=== PATIENT | female | born 1990 | race Caucasian/White ===

== ENCOUNTER 2019-08-31 05:21 | Inpatient (IN) | payer SELFPAY ==
[2019-08-31] VITALS (86 sets, daily range): BP systolic 86–133; BP diastolic 42–91; PULSE 62–99; RESP 16–17; TEMP 36.6–37.2; O2SAT 98–100; BMI 27.6
--- NOTE | 2019-08-31 05:21 | LDADM ---
This patient, Gracia Lanza, was admitted to Labor/Delivery/Recovery 104 on 08/31/19 at 05:21. Plans for labor, pain management and were discussed with patient. Patient/family oriented to hospital policies and general routines including ID bracelet, bed and alarms, visiting hours, pain management, procedures, bathroom and other care routines, personal items, smoking policy, room service/diet and guest tray routines, infant security routines, and visiting hours. Patient/Family are encouraged to report perceived risks to care and to ask questions if they do not understand what they are told or what they should do. See OBIX for further documentation.
[2019-08-31 06:09] LABS: Basophils Percent Auto 0.2 % (0.2-1.2); Eosinophils Absolute Auto 0.1 K/mm3 (0-0.3); Eosinophils Percent Auto 0.9 % (0-4.4); Hematocrit 32.6 % (37.0-47.0); Hemoglobin 10.6 g/dL (12.0-15.0); Immature Granulocyte Absolute 0.05 K/mm3 (0.00-0.031); Immature Granulocyte Percent A 0.8 % (0-0.5); Lymphocytes Absolute Auto 1.79 K/mm3 (0.9-3.2); Lymphocytes Percent Auto 26.9 % (18.3-44.2); Mean Corpuscular HGB Conc 32.5 g/dl (32-36); Mean Corpuscular Hemoglobin 28.4 pg (26-34); Mean Corpuscular Volume 87.4 fl (80-100); Mean Platelet Volume 11.1 fl (7.4-10.4); Monocytes Absolute Auto 0.7 K/mm3 (0.1-0.6); Monocytes Percent Auto 9.9 % (2.6-8.5); Neutrophils Absolute Auto 4.1 K/mm3 (1.3-6.7); Neutrophils Percent Auto 61.3 % (45.5-73.1); Platelet Count Result 234 k/mm3 (150-375); Red Blood Count 3.73 M/mm3 (4.2-5.4); Red Cell Distribution Width 14.6 % (11.5-14.5); White Blood Count 6.7 K/mm3 (4.5-10.0)
[2019-08-31] MEDS: AMPICILLIN 2 GM/NS 100 ML 2 GM/100 ML BAG IVPB (06:21)
[2019-08-31] MEDS: LACTATED RINGERS 1,000 ML 125 ML IV CONT ×2 (06:21→08:22)
[2019-08-31 06:28] LABS: Alanine Aminotransferase 91 U/L (4-35); Albumin Level 3.4 g/dL (3.5-5.1); Alkaline Phosphatase 193 U/L (38-126); Aspartate Amino Transferase 63 U/L (14-36); Bilirubin,Total 0.3 mg/dL (0.2-1.3); Blood Urea Nitrogen 4 mg/dL (7-17); Calcium 8.8 mg/dL (8.4-10.2); Carbon Dioxide 18 mmol/L (22-30); Chloride 106 mmol/L (98-107); Estimated Glomerular Filt Rate > 60; Glucose 88 mg/dL (65-105); Potassium 3.6 mmol/L (3.4-5.0); Sodium 134 mmol/L (137-145)
--- NOTE | 2019-08-31 06:39 | PM.IMHP ---
H&P: HPI History of Present Illness Chief complaint: INDUCTION Narrative: Gracia Lanza is a 29 year old female 7 para 3033, whose last menstrual period was 2018 EDC is 09/07/2019 confirmed by 8 week ultrasound presents 39 weeks gestation for induction of labor. She has elevated blood pressures. Her has been complicated by an arrest and she has had positive marijuana UDS in the past. She also had an abnormal diabetic screen but she had for 4 normal on her 3hour GTT. She is positive for group B strep she did have gonorrhea and has been treated treated twice she received 1 dose of Rocephin IV this morning as an additional coverage Review of Systems Review of Systems: All systems reviewed & are unremarkable except as noted in HPI and below PMFSH Social History Social History Smoking status: Former smoker Meds Home Medications and Allergies Home Medications Medication Instructions Recorded Confirmed Type alprazolam 0.5 mg PO BID PRN 08/05/19 08/31/19 History venlafaxine 37.5 mg PO DAILY 08/05/19 08/31/19 History PNV cmb#95-ferrous fumarate-FA 1 tablet PO DAILY 08/31/19 08/31/19 History [] Allergies Allergy/AdvReac Type Severity Reaction Status Date / Time No Known Allergies Allergy Verified 12/25/18 11:01 Vital Signs Vital Signs - 24 hr 08/31/19 05:39 Pulse Rate 90 Blood Pressure 115/78 Exam Const: General: no acute distress Eyes: General: appearance normal, both eyes and all related structures Neck: Neck: supple and no JVD Thyroid: thyroid normal Resp: Effort & Inspection: normal respiratory effort Auscultation: clear to auscultation bilaterally Cardio: Rate: regular rate Rhythm: regular rhythm GI: Inspection: normal to inspection Auscultation: normal bowel sounds Other: Gravid soft uterus is noted : General: Yes other (Cervix is 3/75%/-1 station AROM is Mec stained. FHTS are reassuring) Skin: General skin exam: no rashes or lesions noted Extrem: General: normal to inspection and no edema Psych: Mental Status: mental status grossly normal Affect: normal affect H&P: Results Labs Labs: Short CBC 08/31/19 Range/Units 06:03 WBC 6.7 (4.5-10.0) K/mm3 Hgb 10.6 L (12.0-15.0) g/dL Hct 32.6 L (37.0-47.0) % Plt Count 234 (150-375) k/mm3 BMP 08/31/19 06:03 Sodium 134 L Potassium 3.6 Chloride 106 Carbon Dioxide 18 L BUN 4 L Creatinine 0.40 L Glucose 88 Calcium 8.8 Liver Function 08/31/19 Range/Units 06:03 Total Bilirubin 0.3 (0.2-1.3) mg/dL AST 63 H (14-36) U/L ALT 91 H (4-35) U/L Alkaline Phosphatase 193 H (38-126) U/L Albumin 3.4 L (3.5-5.1) g/dL Assessment and Plan Additional Plan Impression: Term . Positive group B strep. History of gonorrhea. History of substance abuse Plan: Medical induction of labor. Group B strep prophylaxis. 1 g IV Rocephin given. She is epidural candidate. PIH labs are drawn. UDS is performed
[2019-08-31] MEDS: SODIUM CHLORIDE 0.9% IV 1,000 ML 125 ML (07:16)
[2019-08-31 07:59] LABS: Rapid Plasma Reagin Non-Reactive (NonReactive)
[2019-08-31 08:24] LABS: Amphetamine Screen Urine Negative (Negative); Barbiturate Screen Urine Negative (Negative); Benzodiazepines Screen Urine Negative (Negative); Cannabinoid Screen Urine Negative (Negative); Cocaine Screen Urine Negative (Negative); Methadone Screen Urine Negative (Negative); Opiate Screen Urine Negative (Negative); Phencyclidine Screen Urine Negative (Negative)
--- NOTE | 2019-08-31 08:30 | WPDANESEPPF ---
Anes - Initial Pre Proc Eval Date/Time: 08/31/19 08:30 Surgeon: Miguel Ayoub MD Pre Op Diagnosis: INDUCTION Patient Data Age: 29 Gender: F Height: 1.68 m Weight: 77.5 kg Last Vital Signs Temp 37.2 C 08/31/19 08:26 Pulse 81 08/31/19 08:16 BP 107/67 08/31/19 08:16 Allergies Allergy/AdvReac Type Severity Reaction Status Date / Time No Known Allergies Allergy Verified 12/25/18 11:01 Home Medications Medication Instructions Recorded Confirmed Type alprazolam 0.5 mg PO BID PRN 08/05/19 08/31/19 History venlafaxine 37.5 mg PO DAILY 08/05/19 08/31/19 History PNV cmb#95-ferrous fumarate-FA 1 tablet PO DAILY 08/31/19 08/31/19 History [] Laboratory Tests 08/31/19 08/31/19 08/31/19 06:03 06:03 06:03 WBC 6.7 K/mm3 K/mm3 (4.5-10.0) RBC 3.73 M/mm3 L M/mm3 (4.2-5.4) Hgb 10.6 g/dL L g/dL (12.0-15.0) Hct 32.6 % L % (37.0-47.0) MCV 87.4 fl fl (80-100) MCH 28.4 pg pg (26-34) MCHC 32.5 g/dl g/dl (32-36) RDW 14.6 % H % (11.5-14.5) Plt Count 234 k/mm3 k/mm3 (150-375) MPV 11.1 fl H fl (7.4-10.4) Immature Gran % (Auto) 0.8 % H % (0-0.5) Neut % (Auto) 61.3 % % (45.5-73.1) Lymph % (Auto) 26.9 % % (18.3-44.2) Beckham % (Auto) 9.9 % H % (2.6-8.5) Eos % (Auto) 0.9 % % (0-4.4) Baso % (Auto) 0.2 % % (0.2-1.2) Lymph # (Auto) 1.79 K/mm3 K/mm3 (0.9-3.2) Beckham # (Auto) 0.7 K/mm3 H K/mm3 (0.1-0.6) Eos # (Auto) 0.1 K/mm3 K/mm3 (0-0.3) Baso # (Auto) 0.0 K/mm3 K/mm3 (0.0-0.1) Abs Immat Gran (auto) 0.05 K/mm3 H K/mm3 (0.00-0.031) Absolute Neuts (auto) 4.1 K/mm3 K/mm3 (1.3-6.7) Absolute Nucleated RBC 0.0 K/mm3 K/mm3 (0.0-0.012) Nucleated RBC % 0.0 % % (0.0-0.2) Sodium Potassium Chloride Carbon Dioxide BUN Creatinine Estim Creat Clear Calc Estimated GFR Glucose Calcium Total Bilirubin AST ALT Alkaline Phosphatase Total Protein Albumin Urine Opiates Screen Urine Methadone Screen Ur Barbiturates Screen Ur Phencyclidine Scrn Ur Amphetamine Screen U Benzodiazepines Scrn Urine Cocaine Screen U Cannabinoids Screen RPR Non-reactive (NonReactive) Blood Type O Positive Antibody Screen Negative 08/31/19 08/31/19 06:03 07:36 WBC RBC Hgb Hct MCV MCH MCHC RDW Plt Count MPV Immature Gran % (Auto) Neut % (Auto) Lymph % (Auto) Beckham % (Auto) Eos % (Auto) Baso % (Auto) Lymph # (Auto) Beckham # (Auto) Eos # (Auto) Baso # (Auto) Abs Immat Gran (auto) Absolute Neuts (auto) Absolute Nucleated RBC Nucleated RBC % Sodium 134 mmol/L L mmol/L (137-145) Potassium 3.6 mmol/L mmol/L (3.4-5.0) Chloride 106 mmol/L mmol/L (98-107) Carbon Dioxide 18 mmol/L L mmol/L (22-30) BUN 4 mg/dL L mg/dL (7-17) Creatinine 0.40 mg/dL L mg/dL (0.7-1.0) Estim Creat Clear Calc Not Reportable Estimated GFR > 60 (59 - ) Glucose 88 mg/dL mg/dL (65-105) Calcium 8.8 mg/dL mg/dL (8.4-10.2) Total Bilirubin 0.3 mg/dL mg/dL (0.2-1.3) AST 63 U/L H U/L (14-36) ALT 91 U/L H U/L (4-35) Alkaline Phosphatase 193 U/L H U/L (38-126) Total Protein 7.0 g/dL g/dL (6.3-8.2) Albumin 3.4 g/dL L g/dL (3.5-5.1)
[2019-08-31] MEDS: ALPRAZOLAM 0.25 MG TABLET PO (08:31)
[2019-08-31 08:43] LABS: Uric Acid 5.6 mg/dL (2.5-7.5)
[2019-08-31 09:21] LABS: Alanine Aminotransferase 93 U/L (4-35); Albumin Level 3.3 g/dL (3.5-5.1); Alkaline Phosphatase 195 U/L (38-126); Aspartate Amino Transferase 63 U/L (14-36); Bilirubin,Total 0.3 mg/dL (0.2-1.3)
[2019-08-31] MEDS: AMPICILLIN 1 GM/NS 50 ML 1 GM/50 ML BAG IVPB (10:15)
--- NOTE | 2019-08-31 10:44 | PC.NURSE ---
0700-Spoke with pt and her mother about her previous drug use and that we have received several anonymous phone calls stating that she is using drugs and we have received information stating she will be arrested after she has the baby for the of one of her other children. Pt and her mother both state that she has custody of both of her other children, denies any DCFS cases, and states that she was arrested but is out on her own recognizance. I informed pt that I will be putting a social service consult in on her due to phone calls and previous drug use, pt states she doesn't understand why I have to do that since since she has custody of her children and has never had a DCFS case open on her.
--- NOTE | 2019-08-31 10:50 | PC.NURSE ---
0912Mateusz from care coordination called, informed of anonymous phone calls yesterday stating pt is using hard core drugs and asking if we will do a drug screen on baby and mom. Informed that pt was arrested during this in relation to the of one of her other children but pt denies any DCFS cases.
[2019-08-31 11:05] LABS: Amphetamine Screen Urine Negative (Negative); Barbiturate Screen Urine Negative (Negative); Benzodiazepines Screen Urine Negative (Negative); Cannabinoid Screen Urine Negative (Negative); Cocaine Screen Urine Negative (Negative); Methadone Screen Urine Negative (Negative); Opiate Screen Urine Negative (Negative); Phencyclidine Screen Urine Negative (Negative)
--- NOTE | 2019-08-31 11:27 | PM.OBPRVD ---
OB - Delivery Note Procedure Delivery date: 08/31/19 events: Induced HTN Intrapartal events: None Induction method: AROM Delivery augmentation: pitocin Delivery monitor: external FHT Route of delivery: Episiotomy description: None Laceration description: None Specimen: No Estimated blood loss (mL): 57 Anesthesia type: Epidural Disposition: floor Baby Date of : 08/31/19 Time of : 11:19 Weeks of gestation at delivery: 39 presentation: vertex position: Right Occiput Anterior Placenta delivery description: Spontaneous cord vessel description: 3 Vessels score one minute: 8 score five minutes: 9
--- NOTE | 2019-08-31 14:18 | OBPPTRN ---
Addendum entered by Radha Weston RN 08/31/19 14:45: Transferred to room 283 per wheelchair. Pt's mother is the support person. Original Note: Patient transferred to post room # via ( ). Support person present. Oriented to unit, room, information board, rooming in, admission packet and security measures. Patient verbalizes understanding.
[2019-08-31] MEDS: IBUPROFEN 600 MG TABLET PO (14:35)
[2019-09-01 05:52] LABS: Hemoglobin 9.7 g/dL (12.0-15.0)
--- NOTE | 2019-09-01 07:01 | PM.OBPNVD ---
OB - PN: Subj Subjective Date/time seen: 09/01/19 07:01 Patient comments: no complaints and pain well controlled baby status: doing well and nursing well OB - PN: Obj Data Labs CBC & Chem 7: 09/01/19 04:42 08/31/19 06:03 Labs: Laboratory Results - last 24 hr 08/31/19 08/31/19 08/31/19 06:03 06:03 06:03 Hgb Hct Uric Acid 5.6 Total Bilirubin Direct Bilirubin AST ALT Alkaline Phosphatase Total Protein Albumin Urine Opiates Screen Urine Methadone Screen Ur Barbiturates Screen Ur Phencyclidine Scrn Ur Amphetamine Screen U Benzodiazepines Scrn Urine Cocaine Screen U Cannabinoids Screen RPR Non-reactive Blood Type O Positive Antibody Screen Negative 08/31/19 08/31/19 08/31/19 06:03 07:36 10:21 Hgb Hct Uric Acid Total Bilirubin 0.3 Direct Bilirubin 0.0 AST 63 H ALT 93 H Alkaline Phosphatase 195 H Total Protein 6.0 L Albumin 3.3 L Urine Opiates Screen Negative Negative Urine Methadone Screen Negative Negative Ur Barbiturates Screen Negative Negative Ur Phencyclidine Scrn Negative Negative Ur Amphetamine Screen Negative Negative U Benzodiazepines Scrn Negative Negative Urine Cocaine Screen Negative Negative U Cannabinoids Screen Negative Negative RPR Blood Type Antibody Screen 09/01/19 04:42 Hgb 9.7 L Hct 30.0 L Uric Acid Total Bilirubin Direct Bilirubin AST ALT Alkaline Phosphatase Total Protein Albumin Urine Opiates Screen Urine Methadone Screen Ur Barbiturates Screen Ur Phencyclidine Scrn Ur Amphetamine Screen U Benzodiazepines Scrn Urine Cocaine Screen U Cannabinoids Screen RPR Blood Type Antibody Screen OB - PN A/P Plan day: 1 Plan: routine care Time Spent With Patient Time: Total time spent is greater than 50% in coordination of care (as documented) at patient's floor/unit and/or counseling patient: Time with patient: less than 15 minutes Review of Systems Review of Systems: All systems reviewed & are unremarkable except as noted in HPI and below Exam Const: General: no acute distress Eyes: General: appearance normal, both eyes and all related structures Neck: Neck: supple and no JVD Thyroid: thyroid normal Resp: Effort & Inspection: normal respiratory effort Auscultation: clear to auscultation bilaterally Cardio: Rate: regular rate Rhythm: regular rhythm GI: Inspection: non-distended GI Palp: Yes Soft to palpation, No Tenderness to palpation present (GI) and No Guarding due to palpation present (GI) Auscultation: normal bowel sounds : General: Yes bladder normal to palpation External Female Exam: normal external appearance Speculum Exam - Vagina: normal vaginal discharge and No vaginal bleeding Speculum Exam - Cervix: nontender Bimanual exam- vagina & uterus: bladder normal to palpation and No Cervical tenderness present OB/external & speculum: No vaginal bleeding Skin: General skin exam: no rashes or lesions noted Extrem: General: normal to inspection and no edema Psych: Mental Status: mental status grossly normal Affect: normal affect
[2019-09-01] MEDS: MULTIVIT/MIN/PREN/FOL AC/IRON TABLET 1 TAB PO (07:34)
[2019-09-01] MEDS: POLYSACCHARIDE IRON COMPLEX 150 MG CAPSULE PO ×2 (07:34→22:00)
[2019-09-01] MEDS: IBUPROFEN 600 MG TABLET PO (07:35)
[2019-09-01] MEDS: DOCUSATE SODIUM 100 MG CAPSULE PO ×2 (07:35→22:00)
[2019-09-01] MEDS: ALPRAZOLAM 0.5 MG TABLET PO (08:03)
[2019-09-01] MEDS: LANOLIN (LANSINOH) 7.5 GM CREAM 1 APPLIC TOPICAL (08:07)
[2019-09-01 08:25] VITALS: BP 95/58; PULSE 73; RESP 16; TEMP 36.3; O2SAT 96
--- NOTE | 2019-09-01 08:50 | PC.NURSE ---
Spoke with Pamela from [facility] [employer] regarding Pamela's contact with DCFS regarding pt's past case and to report this current /delivery information. Discussed with Pamela that has not displayed any withdrawal symptoms and is feeding well. Mom is actively involved in infant's care and appears to demonstrate positive bonding behaviors.
--- NOTE | 2019-09-01 09:27 | WPDANLDPN2 ---
Anes-Prog Note L&D Date/Time: 09/01/19 09:27 Comfortable throughout: labor and delivery Neuraxial method: epidural Epidural/Spinal procedure site: clean & non-tender Neuro status: Neuro function grossly intact. Cardiovascular status: normal Respiratory status: normal Airway patency: baseline Mental status: baseline Post-Op hydration status: normal Vital Signs: Last Vital Signs Temp 36.8 C 08/31/19 21:38 Pulse 65 08/31/19 21:38 Resp 17 08/31/19 21:38 BP 108/70 08/31/19 21:38 Pulse Ox 98 08/31/19 14:20 Post-procedural complaints: none Patient feedback: Patient satisfied with anesthetic care.
--- NOTE | 2019-09-01 09:50 | PC.NURSE ---
Consult with pt., mother reports she is able to independently latch infant with appropriate positioning/alignment. She denies any nipple discomfort, is feeding as required and waking to feed if needed. Mother states this is 3rd child to breastfeed. Requested mother call out next feeding for observation.
--- NOTE | 2019-09-01 15:35 | PC.NURSE ---
Pamela from [facility] [employer] called to update RN that she has not heard anything back from DCFS today.
--- NOTE | 2019-09-01 15:43 | PCCCNOTE ---
SW Note. Received referral regarding pt. history of DCFS involvement, history of drug abuse, recent arrest, and history of child . Per report from nursing and physician documentations, online report made to [facility] this morning. Awaiting call back regarding whether report will be taken for investigation. Online reporting ID [id number]. Will follow up with patient after info received from [facility].
[2019-09-01 19:20] VITALS: BP 106/68; PULSE 65; RESP 16; TEMP 36.6; O2SAT 98
[2019-09-01] MEDS: VENLAFAXINE HCL 37.5 MG TABLET PO (22:00)
--- NOTE | 2019-09-02 06:41 | PM.OBPNVD ---
OB - PN: Subj Subjective Date/time seen: 09/02/19 06:41 Patient comments: no complaints and pain well controlled baby status: doing well and nursing well OB - PN: Obj Data Labs CBC & Chem 7: 09/01/19 04:42 08/31/19 06:03 OB - PN A/P Plan day: 2 Plan: routine care, discharge home and follow up 6 weeks Time Spent With Patient Time: Total time spent is greater than 50% in coordination of care (as documented) at patient's floor/unit and/or counseling patient: Time with patient: less than 15 minutes Review of Systems Review of Systems: All systems reviewed & are unremarkable except as noted in HPI and below Exam Const: General: no acute distress Eyes: General: appearance normal, both eyes and all related structures Neck: Neck: supple and no JVD Thyroid: thyroid normal Resp: Effort & Inspection: normal respiratory effort Auscultation: clear to auscultation bilaterally Cardio: Rate: regular rate Rhythm: regular rhythm GI: Inspection: non-distended GI Palp: Yes Soft to palpation, No Tenderness to palpation present (GI) and No Guarding due to palpation present (GI) Auscultation: normal bowel sounds : General: Yes bladder normal to palpation External Female Exam: normal external appearance Speculum Exam - Vagina: normal vaginal discharge and No vaginal bleeding Speculum Exam - Cervix: nontender Bimanual exam- vagina & uterus: bladder normal to palpation and No Cervical tenderness present OB/external & speculum: No vaginal bleeding Skin: General skin exam: no rashes or lesions noted Extrem: General: normal to inspection and no edema Psych: Mental Status: mental status grossly normal Affect: normal affect
--- NOTE | 2019-09-02 06:42 | PM.DS ---
DS: Summary Hospital Course Reason for hospitalization: htn/gbs/term Time Spent with Patient Time attestation: Total time spent providing and/or coordinating discharge services: Exam Const: General: no acute distress Eyes: General: appearance normal, both eyes and all related structures Neck: Neck: supple and no JVD Thyroid: thyroid normal Resp: Effort & Inspection: normal respiratory effort Auscultation: clear to auscultation bilaterally Cardio: Rate: regular rate Rhythm: regular rhythm GI: Inspection: non-distended GI Palp: Yes Soft to palpation, No Tenderness to palpation present (GI) and No Guarding due to palpation present (GI) Auscultation: normal bowel sounds : General: Yes bladder normal to palpation External Female Exam: normal external appearance Speculum Exam - Vagina: normal vaginal discharge and No vaginal bleeding Speculum Exam - Cervix: nontender Bimanual exam- vagina & uterus: bladder normal to palpation and No Cervical tenderness present OB/external & speculum: No vaginal bleeding Skin: General skin exam: no rashes or lesions noted Extrem: General: normal to inspection and no edema Psych: Mental Status: mental status grossly normal Affect: normal affect Discharge Plan Discharge Attending physician on discharge: Miguel Ayoub Discharging Clinician: Miguel Ayoub Patient Disposition: Home, Self-Care Activity: may shower, no straining, may drive after 2 weeks and pelvic rest Diet: heart healthy Wound Care Instructions: follow printed instructions Patient Instructions: Antibiotic Form Stand Alone Forms: General Discharge Information Follow-up/Referrals: Miguel Ayoub MD [Physician] - Discharge Medications: Continued venlafaxine 75 mg tablet 37.5 mg PO DAILY RF: 0 alprazolam 0.5 mg tablet 0.5 mg PO BID PRN (Reason: Anxiety) RF: 0 PNV cmb#95-ferrous fumarate-FA [] 28 mg iron- 800 mcg Tablet 1 tablet PO DAILY RF: 0 Date of admission: 08/31/19 05:21 Primary Care Provider: Philip Belle Admitting Provider: Miguel Ayoub Attending physician on admission: Miguel Ayoub
[2019-09-02 07:30] VITALS: BP 122/84; PULSE 55; RESP 18; TEMP 36.3; O2SAT 99
[2019-09-02] MEDS: DOCUSATE SODIUM 100 MG CAPSULE PO (07:34)
[2019-09-02] MEDS: MULTIVIT/MIN/PREN/FOL AC/IRON TABLET 1 TAB PO (07:35)
[2019-09-02] MEDS: IBUPROFEN 600 MG TABLET PO (07:36)
[2019-09-02] MEDS: POLYSACCHARIDE IRON COMPLEX 150 MG CAPSULE PO (07:36)
[2019-09-02] MEDS: ALPRAZOLAM 0.5 MG TABLET PO (07:37)
--- NOTE | 2019-09-02 11:50 | PC.NURSE ---
Mother is able to independently latch infant with appropriate positioning/alignment. She denies any nipple discomfort, is feeding as required and waking to feed if needed. has had 8 effective feedings in the past 24 hours, and is currently meeting outcomes for weight, output, jaundice and feeding frequencies. Mother states she feels confident to continue effective at home. Reviewed transition to breast milk, signs of adequate intake, and engorgement/relief. Instructed to call ICP if intake/output less than required. Reviewed regular medications mother is taking. Information provided per Eva. Reviewed community resources on the [facility] website and in the Mom/Baby guide. Information on outpatient services provided. Mother has no further questions at this time.
--- NOTE | 2019-09-02 12:51 | PC.NURSE ---
Self care and infant care discharge instructions given including follow up visit date and time. Mother verbalized understanding.
--- NOTE | 2019-09-02 14:23 | PC.NURSE ---
1245: Antoinette Hernandez from medical records here to confirm that Medical Form signed and filled in appropriately. Form then faxed to Meg De La [facility]ega at [phone].
--- NOTE | 2019-09-02 16:15 | PCCCNOTE ---
Received notification from [facility] that report was taken for investigation. Intake ID [id number]. Spoke with Sue Long with the [facility] office. Initally she said she would be coming to the hospital to see patient, but later called back and said that mother and infant could be discharged from their stand point and they will follow up with them in the home this afternoon.
[2019-09-03 09:56] VITALS: BP 116/82; PULSE 66; RESP 16; TEMP 36.9
== END 2019-09-02 14:00 | disposition home or self-care (01) | DRG 560 ==
LOC: ANHLDR 05:26 → ANHOB2 14:20
PROVIDERS: Admitting Provider Obstetrics & Gynecology; PCP Obstetrics & Gynecology; Visit Provider Obstetrics & Gynecology
DX: O13.4 Gestational [pregnancy-induced] hypertension without significant proteinuria, complicating childbirth (principal); Z37.0 Single live birth; Z3A.39 39 weeks gestation of pregnancy; O98.22 Gonorrhea complicating childbirth; O99.824 Streptococcus B carrier state complicating childbirth; O69.81X0 Labor and delivery complicated by cord around neck, without compression, not applicable or unspecified
CPT/HCPCS: 36415; 80053; 80076; 80307; 84550; 85014; 85018; 85025; 86592; 86850; 86900; 86901; A9270; J0290; J0696; J2590; J2795; J7030; J7120